=== PATIENT | female | born 1995 | race Caucasian/White ===

== ENCOUNTER 2017-11-28 | Emergency (ER) | payer BC, MEDICAID ==
--- NOTE | 2017-11-28 01:20 | ER Document Report ---
ED Medical Screen (RME) - General Chief Complaint: Vaginal Bleeding Stated Complaint: ABDOMINAL CRAMPING/DIZZY Time Seen by Provider: 11/28/17 01:18 Mode of Arrival: Ambulatory Information source: Patient Notes: 22-year-old female presents to ED for complaint of left flank pain since a.m. She states that it is been off and on throughout the day but got worse this afternoon. She states he called the health department and they told her to drink more water if she was cramping. She states she is 9 weeks 6 days 1 para 0. She denies any vaginal pain or bleeding. She denies any vaginal burning or discharge. Temperature 98.5 pulse is 91 and pulse ox is 100% in the Pit. I have greeted and performed a rapid initial assessment of this patient. A comprehensive ED assessment and evaluation of the patient, analysis of test results and completion of medical decision making process will be conducted by an additional ED providers. TRAVEL OUTSIDE OF THE [place] IN LAST 30 DAYS: No Physical Exam - Vital signs Vitals: Temp Pulse Resp BP Pulse Ox 99.3 F 115 H 20 133/76 H 99 11/28/17 00:04 11/28/17 00:04 11/28/17 00:04 11/28/17 00:04 11/28/17 00:04 Course - Vital Signs Vital signs: Temp Pulse Resp BP Pulse Ox 99.3 F 115 H 20 133/76 H 99 11/28/17 00:04 11/28/17 00:04 11/28/17 00:04 11/28/17 00:04 11/28/17 00:04
[2017-11-28] MEDS ORDERED: NORMAL SALINE 1000 ML 1,000 ML IV ONE (01:39)
--- NOTE | 2017-11-28 01:40 | ER Document Report ---
ED GI/ - General Chief Complaint: Vaginal Bleeding Stated Complaint: ABDOMINAL CRAMPING/DIZZY Time Seen by Provider: 11/28/17 01:18 Mode of Arrival: Ambulatory Notes: Patient is a 22-year-old female, at 9 weeks 6 days by first trimester ultrasound, the comes emergency department for chief complaint of mid to lower abdominal pain that radiates around to her left side and flank. Symptoms started earlier today, come and go but at times are very sharp. She states when she stands up occasionally she will feel lightheaded although she has not passed out, she does not have dizziness. She denies chest pain, shortness of breath, fever, dysuria, vaginal discharge or bleeding. She denies injury. She denies any surgeries or daily medications other than vitamins. TRAVEL OUTSIDE OF THE [place] IN LAST 30 DAYS: No - Related Data Allergies/Adverse Reactions: No Known Allergies Allergy (Unverified 11/28/17 01:19) Past Medical History - General Information source: Patient - Social History Smoking Status: Never Smoker Frequency of alcohol use: None Drug Abuse: None Lives with: Family Family History: Reviewed & Not Pertinent Patient has suicidal ideation: No Patient has homicidal ideation: No - Medical History Medical History: Negative Renal/ Medical History: Denies: Hx Peritoneal Dialysis Surgical Hx: Negative - Immunizations Immunizations up to date: Yes Hx Diphtheria, Pertussis, Tetanus Vaccination: Yes Review of Systems - Review of Systems Constitutional: No symptoms reported EENT: No symptoms reported Cardiovascular: No symptoms reported Respiratory: No symptoms reported Gastrointestinal: See HPI Genitourinary: See HPI Female Genitourinary: See HPI Musculoskeletal: No symptoms reported Skin: No symptoms reported Hematologic/Lymphatic: No symptoms reported Neurological/Psychological: No symptoms reported Physical Exam - Vital signs Vitals: Temp Pulse Resp BP Pulse Ox 99.3 F 115 H 20 133/76 H 99 11/28/17 00:04 11/28/17 00:04 11/28/17 00:04 11/28/17 00:04 11/28/17 00:04 - General General appearance: Appears well In distress: None - HEENT Head: Normocephalic, Atraumatic Eyes: Normal Conjunctiva: Normal Pupils: PERRL Mouth/Lips: Normal Mucous membranes: Normal Pharynx: Normal Neck: Normal - Respiratory Respiratory status: No respiratory distress Breath sounds: Normal. No: Decreased air movement - Cardiovascular Rhythm: Regular. No: Tachycardia Heart sounds: Normal auscultation, S1 appreciated, S2 appreciated - Abdominal Inspection: Normal Tenderness: Tender - There is mild tenderness in the pelvic area on both sides, remaining abdomen is benign - Back Back: Normal, Nontender. No: Tender - Extremities General upper extremity: Normal inspection, Nontender, Normal strength, Normal temperature General lower extremity: Normal inspection, Nontender, Normal strength, Normal temperature - Neurological Neuro grossly intact: Yes Cognition: Normal Orientation: AAOx4 Leigh Coma Scale Eye Opening: Spontaneous Leigh Coma Scale Verbal: Oriented Leigh Coma Scale Motor: Obeys Commands Teresa Coma Scale Total: 15 Speech: Normal Motor strength normal: LUE, RUE, LLE, RLE Sensory: Normal - Skin Skin Temperature: Warm Skin Moisture: Dry Skin Color: Normal Course - Re-evaluation Re-evalutation: Patient is well-appearing on exam, she does have some pelvic pain on both sides , no CVA tenderness, no upper abdominal tenderness. Unremarkable vital signs. She is in no distress. Vital signs are unremarkable except for mild tachycardia. Giving IV fluids. CBC does show leukocytosis. She did not have a fever. No bandemia. Tachycardia resolved with IV fluids. Chemistry unremarkable, urine nonspecific , hCG is elevated. Ultrasound is unremarkable. Pelvic examination shows a large amount of discharge, erythematous cervix, 2+ white blood cells and white, unremarkable workup otherwise. Because of pelvic pain, leukocytosis, white blood cells, discharge, patient was treated with Rocephin and azithromycin for coverage of potential pelvic infection. Patient has [facility] follow-up. Patient states she is ready to leave. Remains well- appearing on reexamination. Discussed follow-up and return precautions. Patient states understanding and agreement. - Vital Signs Vital signs: Temp Pulse Resp BP Pulse Ox 98.5 F 78 18 105/64 100 11/28/17 06:17 11/28/17 06:17 11/28/17 06:17 11/28/17 06:17 11/28/17 06:17 - Laboratory Result Diagrams: 11/28/17 01:56 11/28/17 01:56 Laboratory results interpreted by me: 11/28/17 11/28/17 11/28/17 01:23 01:56 01:56 WBC 15.9 H Plt Count 453 H Absolute Neutrophils 11.7 H Chloride 110 H Creatinine 0.47 L Beta HCG, Quant 595632.00 H Urine Urobilinogen 2.0 H Ur Leukocyte Esterase MODERATE H Discharge - Discharge Clinical Impression: Pelvic pain Condition: Stable Disposition: HOME, SELF-CARE Additional Instructions: Your ultrasound shows a living in the uterus at 10 weeks and 4 days with no abnormalities noted. Your examination shows a pelvic infection, you have been treated for this tonight. Follow-up with your [facility] appointment as planned. Return if you worsen including vomiting, returned or worsening abdominal pain, fever, vaginal bleeding, or any other concerning or worsening symptoms. Forms: Return to Work Referrals: FILIPE LOVELACE MD [Primary Care Provider] - Follow up as needed
[2017-11-28 01:42] LABS: AMORPHOUS SEDIMENT,URINE TRACE /HPF; APPEARANCE,URINE SLIGHTLY-CLOUDY; BILIRUBIN,URINE NEGATIVE (NEGATIVE); COLOR,URINE YELLOW; GLUCOSE, URINE NEGATIVE (NEGATIVE); KETONES,URINE NEGATIVE (NEGATIVE); LEUKOCYTE ESTERASE,URINE MODERATE (NEGATIVE); NITRITE,URINE NEGATIVE (NEGATIVE); PROTEIN,URINE NEGATIVE (NEGATIVE); URINE SPECIFIC GRAVITY 1.023
[2017-11-28 02:02] LABS: ABSOLUTE BASOPHILS # (AUTO) 0.1 10^3/uL (0.0-0.2); ABSOLUTE EOSINOPHILS # (AUTO) 0.1 10^3/uL (0.0-0.6); ABSOLUTE LYMPHOCYTES (AUTO) 3.1 10^3/uL (0.5-4.7); ABSOLUTE MONOCYTES (AUTO) 0.9 10^3/uL (0.1-1.4); ABSOLUTE NEUT (AUTO) 11.7 10^3/uL (1.7-8.2); BASOPHILS % (AUTO) 0.5 % (0-2); EOSINOPHILS % (AUTO) 0.3 % (0-6); HEMATOCRIT 38.7 % (36.0-47.0); LYMPHOCYTES % (AUTO) 19.3 % (13-45); MEAN CORPUSCULAR HEMOGLOBIN 30.3 pg (27.0-33.4); MEAN CORPUSCULAR HGB CONC 33.7 g/dL (32.0-36.0); MEAN CORPUSCULAR VOLUME 90 fl (80-97); PLATELET COUNT 453 10^3/uL (150-450); RED BLOOD COUNT 4.31 10^6/uL (3.72-5.28); RED CELL DISTRIBUTION WIDTH 12.3 % (11.5-14.0); SEGMENTED NEUTROPHILS % (AUTO) 73.9 % (42-78); TOTAL CELLS COUNTED % (AUTO) 100 %; WHITE BLOOD COUNT 15.9 10^3/uL (4.0-10.5)
[2017-11-28 02:20] LABS: ALANINE AMINOTRANSFERASE 19 U/L (9-52); ALBUMIN 4.1 g/dL (3.5-5.0); ALKALINE PHOSPHATASE 64 U/L (38-126); ANION GAP 10 (5-19); ASPARTATE AMINO TRANSFERASE 20 U/L (14-36); BILIRUBIN,DIRECT 0.2 mg/dL (0.0-0.4); BILIRUBIN,TOTAL 0.2 mg/dL (0.2-1.3); BLOOD UREA NITROGEN 8 mg/dL (7-20); CALCIUM 9.9 mg/dL (8.4-10.2); CARBON DIOXIDE 22 mmol/L (22-30); CHLORIDE 110 mmol/L (98-107); GLUCOSE 77 mg/dL (75-110); POTASSIUM 3.9 mmol/L (3.6-5.0); SODIUM 141.5 mmol/L (137-145); TOTAL PROTEIN 6.8 g/dL (6.3-8.2)
[2017-11-28 02:54] LABS: RBCS (WET MOUNT) RARE RBCS SEEN; T.VAGINALIS (WET MOUNT) NO TRICHOMONAS SEEN; WBCS (WET MOUNT) 2+ WBCS SEEN; YEAST (WET MOUNT) NO YEAST SEEN
[2017-11-28 04:12] LABS: CHLAM PCR NOT DETECTED (NOT DETECT); GON PCR NOT DETECTED (NOT DETECT)
--- NOTE | 2017-11-28 05:28 | RADIOLOGY REPORT (SQ) ---
EXAM DESCRIPTION: U/S OB TRANSVAG W/DOPPLER CLINICAL HISTORY: 22 years, Female, pelvic pain (worse on left), positive HCG COMPARISON: None. TECHNIQUE: Transvaginal LIMITATIONS: None. FINDINGS: Living intrauterine fetus measures 10w4d with VIOLA of 06/22/18 based on crown-rump length of 3.6 cm. Cardiac activity is 157 bpm. 3.1 cm right ovary, 3.8 cm left ovary, and likely 1.6 cm left corpus luteum appear otherwise unremarkable. Cervical length is 2.5 cm. No free fluid. IMPRESSION: Living intrauterine fetus measures 10w4d.
[2017-11-28] MEDS ORDERED: CEFTRIAXONE INJ 250 MG VIAL IV ONE (05:39)
[2017-11-28] MEDS ORDERED: AZITHROMYCIN 250 MG TABLET PO ONE (05:39)
[2017-11-28 06:35] VITALS: BP 105/64
== END 2017-11-28 06:37 | disposition home or self-care (01) ==
LOC: ER
DX: O26.891 Other specified pregnancy related conditions, first trimester (principal); R10.2 Pelvic and perineal pain; R42 Dizziness and giddiness; R00.0 Tachycardia, unspecified; Z3A.09 9 weeks gestation of pregnancy
CPT/HCPCS: 99284; 96361; 96365; 36415; 87210; 84702; 85025; 80053; 81001; 87491; 87591; 76817; 93976; Q0144; J7030; J0696

== ENCOUNTER 2018-06-08 17:41 | Outpatient (CLI) | payer MEDICAID ==
[~2018-06-08 17:41] MED LIST: LIDOCAINE 2% VISCOUS SOLN 20 ML UDCUP PO ONE; MAG HYDROX/AL HYDROX/SIMETH SUSP 30 ML UDCUP PO ONE; METOCLOPRAMIDE HCL ORAL SOLN 10 MG/10 ML UDCUP PO ONE; OXYCODONE-ACETAMINOPHEN 5-325 MG TABLET PO ONE
[2018-06-08] MEDS ORDERED: HYDROXYZINE PAMOATE 50 MG CAPSULE PO ONE (18:37)
[2018-06-08 18:52] LABS: ABSOLUTE BASOPHILS # (AUTO) 0.1 10^3/uL (0.0-0.2); ABSOLUTE EOSINOPHILS # (AUTO) 0.1 10^3/uL (0.0-0.6); ABSOLUTE LYMPHOCYTES (AUTO) 1.9 10^3/uL (0.5-4.7); ABSOLUTE NEUT (AUTO) 11.4 10^3/uL (1.7-8.2); BASOPHILS % (AUTO) 0.6 % (0-2); EOSINOPHILS % (AUTO) 0.8 % (0-6); HEMATOCRIT 33.2 % (36.0-47.0); HEMOGLOBIN 11.3 g/dL (12.0-15.5); LYMPHOCYTES % (AUTO) 13.1 % (13-45); MEAN CORPUSCULAR HEMOGLOBIN 29.3 pg (27.0-33.4); MEAN CORPUSCULAR VOLUME 86 fl (80-97); MONOCYTES % (AUTO) 6.9 % (3-13); PLATELET COUNT 363 10^3/uL (150-450); RED BLOOD COUNT 3.86 10^6/uL (3.72-5.28); RED CELL DISTRIBUTION WIDTH 13.4 % (11.5-14.0); SEGMENTED NEUTROPHILS % (AUTO) 78.6 % (42-78); TOTAL CELLS COUNTED % (AUTO) 100 %; WHITE BLOOD COUNT 14.5 10^3/uL (4.0-10.5)
[2018-06-08] MEDS ORDERED: HYDROXYZINE PAMOATE 50 MG CAPSULE ONE (19:21)
[2018-06-08 19:22] LABS: ALANINE AMINOTRANSFERASE 17 U/L (9-52); ALBUMIN 3.5 g/dL (3.5-5.0); ALKALINE PHOSPHATASE 162 U/L (38-126); AMYLASE 56 U/L (30-110); ANION GAP 13 (5-19); ASPARTATE AMINO TRANSFERASE 18 U/L (14-36); BILIRUBIN,DIRECT 0.3 mg/dL (0.0-0.4); BILIRUBIN,TOTAL 0.5 mg/dL (0.2-1.3); BLOOD UREA NITROGEN 8 mg/dL (7-20); CALCIUM 9.7 mg/dL (8.4-10.2); CARBON DIOXIDE 18 mmol/L (22-30); CHLORIDE 107 mmol/L (98-107); GLUCOSE 88 mg/dL (75-110); LIPASE 84.5 U/L (23-300); POTASSIUM 3.8 mmol/L (3.6-5.0); SODIUM 137.7 mmol/L (137-145); TOTAL PROTEIN 6.5 g/dL (6.3-8.2)
[2018-06-08] MEDS ORDERED: RINGERS SOLUTION,LACTATED 1,000 ML IV ONE (19:50)
[2018-06-08] MEDS ORDERED: RINGERS SOLUTION,LACTATED 1,000 ML IV PRN (19:50)
[2018-06-08 20:22] LABS: APPEARANCE,URINE TURBID; BILIRUBIN,URINE NEGATIVE (NEGATIVE); GLUCOSE, URINE NEGATIVE (NEGATIVE); KETONES,URINE NEGATIVE (NEGATIVE); LEUKOCYTE ESTERASE,URINE TRACE (NEGATIVE); NITRITE,URINE NEGATIVE (NEGATIVE); PROTEIN,URINE NEGATIVE (NEGATIVE); URINE SPECIFIC GRAVITY 1.021; UROBILINOGEN,URINE NEGATIVE mg/dL (<2.0)
[2018-06-08 20:23] LABS: COLOR,URINE DARK YELLOW
[2018-06-08 20:38] LABS: URINE AMPHETAMINES SCREEN NEGATIVE; URINE BARBITURATES SCREEN NEGATIVE; URINE BENZODIAZEPINES SCREEN NEGATIVE; URINE COCAINE SCREEN NEGATIVE; URINE MARIJUANA (THC) SCREEN NEGATIVE; URINE METHADONE SCREEN NEGATIVE; URINE PHENCYCLIDINE SCREEN NEGATIVE
[2018-06-08] MEDS ORDERED: MAG HYDROX/AL HYDROX/SIMETH SUSP 30 ML UDCUP ONE ×2 (21:42→23:37)
[2018-06-08] MEDS ORDERED: MAG HYDROX/AL HYDROX/SIMETH SUSP 30 ML UDCUP PO ONE (21:44)
[2018-06-08] MEDS ORDERED: OXYCODONE-ACETAMINOPHEN 5-325 MG TABLET ONE (23:25)
[2018-06-08] MEDS ORDERED: METOCLOPRAMIDE HCL ORAL SOLN 10 MG/10 ML UDCUP ONE (23:34)
[2018-06-08] MEDS ORDERED: LIDOCAINE 2% VISCOUS SOLN 20 ML UDCUP ONE (23:34)
[2018-06-09] MEDS ORDERED: PROMETHAZINE HCL INJ 25 MG/1 ML VIAL ONE (00:47)
[2018-06-09] MEDS ORDERED: MORPHINE SULFATE 10 MG/ML INJ ONE (00:48)
[2018-06-09] MEDS ORDERED: PROMETHAZINE HCL INJ 25 MG/1 ML VIAL IV ONE (00:59)
[2018-06-09] MEDS ORDERED: MORPHINE SULFATE 10 MG/ML INJ IV ONE (00:59)
--- NOTE | 2018-06-09 02:01 | RADIOLOGY REPORT (SQ) ---
CLINICAL DATA: 22-year-old female with right upper quadrant pain and positive at 37 weeks. TECHNICAL DATA: Transabdominal ultrasound imaging was performed through the gravid uterus. COMPARISON: Prior OB ultrasound performed on 11/28/2017.. FINDINGS: ANATOMIC EVALUATION FETUS single POSITION Vertex HEART RATE 135 bpm AMNIOTIC FLUID 12.2 cm PLACENTA LOCATION fundal PREVIA none MEASUREMENTS BPD: 9.39 cm corresponding to 38 weeks, two days. HC: 33.35 cm corresponding to 38 weeks, one days. AC: 34.05 cm corresponding to 38 weeks, zero days. FL: 7.45 cm corresponding to 38 weeks, one days. CER: 3.4 cm FL/AC: 21.9 FL/BPD: 79.3 HC/AC: 0.98 CI: 82.3 EFW: 3380 grams (56th percentile) CLINICAL DATES LMP 09/13/2017 [place] 38 weeks two days EDC 06/20/2018 ESTIMATED DATES BY ULTRASOUND A[address] [place] 38 weeks one day EDC 06/21/2018 IMPRESSION: 1. Single living intrauterine with an estimated ultrasound age of 38 weeks, one days with an estimated due date of 06/21/2018. 2. The placenta is fundal in location without evidence of placenta previa. 3. The amniotic fluid index is within normal limits. 4. The anatomic survey not performed at this time. 5. The anatomic ratios are within normal limits..
--- NOTE | 2018-06-09 02:05 | RADIOLOGY REPORT (SQ) ---
EXAM DESCRIPTION: US ABDOMEN LIMITED COMPLETED DATE/TME: 06/08/2018 23:21 CLINICAL HISTORY: RUQ pain COMPARISON: None. TECHNIQUE: Real-time sonographic images of the right upper abdomen were obtained using a curved multihertz transducer. FINDINGS: Pancreas: The pancreas is not well-visualized due to overlying structures. Vascular: The visualized portions of the aorta and IVC are unremarkable. Liver: The liver has normal contour and echogenicity. Hepatopedal flow in the portal vein. Findings confirmed with color and spectral Doppler imaging. The common bile duct measures 0.2 cm. Gallbladder: The gallbladder has a normal appearance. No gallstones identified. No wall thickening or pericholecystic fluid. Right Kidney: The right kidney measures 10.2 cm in length. Mild prominence of the right renal collecting system is within normal limits for the gestational age of the patient's . No shadowing echogenic foci may represent pelvic fat however nonobstructing calculus not excluded. IMPRESSION: 1. No gallstones identified. 2. Pelvicalyceal dilatation of the right kidney is within normal limits for the gestational age of the patient's . 3. Echogenic nonshadowing foci in the renal pelvis may be related to normal pelvic fat however punctate nonobstructing calculi could produce a similar appearance.
--- NOTE | 2018-06-09 02:39 | Non Stress Test Report ---
Non Stress Test Datetime Report Generated by CPN: 06/09/2018 02:38 DEMOGRAPHIC EGA NST: 37.2 INDICATION Indication for Study: Ordered by Provider Indication for Study (NST) Other: LC VITAL SIGNS Temperature - NST: 97.4 Pulse - NST: 84 RESP - NST: 16 NBPSYS NST: 95 NBPDIA NST: 50 URINE RESULTS Urine Protein, NST: Negative Urine Ketones - NST: Negative Urine Glucose - NST: Negative Urine Blood - NST: Negative MONITORING Monitor Explained: Monitor Explained; Test Explained; Patient Verbalized Understanding Time on Monitor: 06/08/2018 17:56 Time off Monitor: 06/09/2018 01:46 NST Duration: 470 NST INTERVENTIONS NST Interventions: PO Hydration; IV Fluids Physician Notified NST: Dr. David BABY A: [id number] BABY A Movement : Present Contraction Frequency : None noted FHR Baseline : 125 Accelerations : 15X15 Decelerations : None Variability : Moderate 6-25bpm NST Review: Meets Criteria for Reactive NST NST Review and Verified By : Sima Devi, RN NST Results: Reactive NST REPORT Report Trigger: Send Report
== END 2018-06-09 01:57 | disposition home or self-care (01) ==
LOC: LC 17:41
PROVIDERS: ATTEND Obstetrics & Gynecology
PROC: 4A1HXCZ Monitoring of Products of Conception, Cardiac Rate, External Approach (ICD-10-PCS; principal; 2018-06-08)
DX: O26.893 Other specified pregnancy related conditions, third trimester (principal); R10.11 Right upper quadrant pain; Z3A.37 37 weeks gestation of pregnancy
CPT/HCPCS: 59025; 36415; 82150; 83690; 85025; 81005; 80053; 80307; 76705; 76815; J3490 ×4; J2270; J2550

== ENCOUNTER 2018-06-09 17:24 | Outpatient (CLI) | payer MEDICAID ==
[2018-06-09 18:00] LABS: APPEARANCE,URINE SLIGHTLY-CLOUDY; BILIRUBIN,URINE NEGATIVE (NEGATIVE); GLUCOSE, URINE NEGATIVE (NEGATIVE); KETONES,URINE 20 mg/dL (NEGATIVE); LEUKOCYTE ESTERASE,URINE TRACE (NEGATIVE); NITRITE,URINE NEGATIVE (NEGATIVE); PROTEIN,URINE NEGATIVE (NEGATIVE); URINE SPECIFIC GRAVITY 1.004; UROBILINOGEN,URINE NEGATIVE mg/dL (<2.0)
[2018-06-09 18:03] LABS: COLOR,URINE YELLOW
[2018-06-09 18:50] LABS: ABSOLUTE BASOPHILS # (AUTO) 0.1 10^3/uL (0.0-0.2); ABSOLUTE LYMPHOCYTES (AUTO) 1.6 10^3/uL (0.5-4.7); ABSOLUTE NEUT (AUTO) 17.1 10^3/uL (1.7-8.2); BASOPHILS % (AUTO) 0.4 % (0-2); HEMATOCRIT 31.9 % (36.0-47.0); HEMOGLOBIN 10.9 g/dL (12.0-15.5); LYMPHOCYTES % (AUTO) 8.1 % (13-45); MEAN CORPUSCULAR HEMOGLOBIN 29.1 pg (27.0-33.4); MEAN CORPUSCULAR HGB CONC 34.3 g/dL (32.0-36.0); MEAN CORPUSCULAR VOLUME 85 fl (80-97); PLATELET COUNT 352 10^3/uL (150-450); RED BLOOD COUNT 3.75 10^6/uL (3.72-5.28); RED CELL DISTRIBUTION WIDTH 13.5 % (11.5-14.0); SEGMENTED NEUTROPHILS % (AUTO) 86.5 % (42-78); TOTAL CELLS COUNTED % (AUTO) 100 %; WHITE BLOOD COUNT 19.7 10^3/uL (4.0-10.5)
[2018-06-09 18:59] LABS: URINE AMPHETAMINES SCREEN NEGATIVE; URINE BARBITURATES SCREEN NEGATIVE; URINE BENZODIAZEPINES SCREEN NEGATIVE; URINE COCAINE SCREEN NEGATIVE; URINE MARIJUANA (THC) SCREEN NEGATIVE; URINE METHADONE SCREEN NEGATIVE; URINE PHENCYCLIDINE SCREEN NEGATIVE
[2018-06-09] MEDS ORDERED: MORPHINE SULFATE 10 MG/ML INJ ONE (19:27)
--- NOTE | 2018-06-09 20:16 | RADIOLOGY REPORT (SQ) ---
EXAM DESCRIPTION: U/S ABDOMEN LIMITED W/O DOP COMPLETED DATE/TIME: 06/09/2018 8:08 pm REASON FOR STUDY: 37+3 EGA w/RUQ pain, please eval appy COMPARISON: None. TECHNIQUE: Static and real time shook scale imaging performed of the right lower quadrant with additi onal compression maneuvers. LIMITATIONS: None. FINDINGS: APPENDIX: Not visualized. BOWEL: Active peristalsis with fluid in the bowel. COMPRESSION MANEUVERS: No rebound pain with compression. OTHER: No other significant finding. IMPRESSION: APPENDIX NOT IDENTIFIED. ACTIVE PERISTALSIS. TECHNICAL DOCUMENTATION: JOB ID: [id number] [employer]- All Rights Reserved Reading location - IP/workstation name: [email or web address]
[2018-06-09] MEDS ORDERED: MORPHINE SULFATE 10 MG/ML INJ IM ONE (20:20)
[2018-06-09 21:02] LABS: ALANINE AMINOTRANSFERASE 16 U/L (9-52); ALBUMIN 3.3 g/dL (3.5-5.0); ALKALINE PHOSPHATASE 174 U/L (38-126); ANION GAP 11 (5-19); ASPARTATE AMINO TRANSFERASE 18 U/L (14-36); BILIRUBIN,DIRECT 0.4 mg/dL (0.0-0.4); BILIRUBIN,TOTAL 0.7 mg/dL (0.2-1.3); BLOOD UREA NITROGEN 3 mg/dL (7-20); CALCIUM 9.4 mg/dL (8.4-10.2); CARBON DIOXIDE 18 mmol/L (22-30); CHLORIDE 106 mmol/L (98-107); GLUCOSE 86 mg/dL (75-110); SODIUM 134.9 mmol/L (137-145); TOTAL PROTEIN 6.2 g/dL (6.3-8.2); URIC ACID 6.6 mg/dL (2.5-6.2)
[2018-06-09] MEDS ORDERED: OXYCODONE-ACETAMINOPHEN 5-325 MG TABLET ONE (21:55)
[2018-06-09] MEDS ORDERED: OXYCODONE-ACETAMINOPHEN 5-325 MG TABLET PO ONE (22:05)
--- NOTE | 2018-06-09 22:14 | Non Stress Test Report ---
Non Stress Test Datetime Report Generated by CPN: 06/09/2018 22:14 DEMOGRAPHIC EGA NST: 37.3 INDICATION Indication for Study: Ordered by Provider Indication for Study (NST) Other: LC URINE RESULTS Urine Protein, NST: Negative Urine Ketones - NST: Positive Urine Glucose - NST: Negative Urine Blood - NST: Positive MONITORING Monitor Explained: Monitor Explained; Test Explained; Patient Verbalized Understanding Time on Monitor: 06/09/2018 17:35 Time off Monitor: 06/09/2018 21:46 NST Duration: 251 NST INTERVENTIONS NST Interventions: PO Hydration Physician Notified NST: Cox-Abel BABY A: [id number] BABY A Movement : Present Contraction Frequency : irregular FHR Baseline : 120 Accelerations : 15X15 Decelerations : None Variability : Moderate 6-25bpm NST Review: Meets Criteria for Reactive NST NST Review and Verified By : Sima Devi RN NST Results: Reactive NST REPORT Report Trigger: Send Report
--- NOTE | 2018-06-09 22:14 | L&D Progress Notes ---
PROGRESS NOTES Datetime Report Generated by RAJ: 06/09/2018 22:14 PROGRESS NOTE Impression Other: RUQ pain, back pain, N/V Comment: 24yo at 37+3 weeks seen in triage with c/o continued RUQ pain since 1600 yesterday afternoon. Pt was seen in triage last night w/grossly normal labs and normal RUQ US. She was d/c home w/precautions. Pt represented this afternoon with continued pain. She states she is able to keep down fluids but has not tried eating. Nothing makes it better. Pain starts on her upper left abdomen, radiates to back, then moves down her buttock and leg. US of appendix was ordered, unable to be visualized. Increase in WBC from 14 to 19, left shift. CMP WNL. Min leuk esterase in UA. Vitals signs WNL, afebrile. No rebound tenderness noted, no tenderness with deep palpation. Pt was noted to be eating in room. No vomiting while in triage. Morphine given IM with improvement of pain. Low suspicion for atypical preE, gallbladder disease, unable to visualize appendicitis however low on Ddx at this time, not in labor. Pt d/c home with a percocet and instructions to return for worsening of pain, ROM, reg painful ctx, LOF. Instructed to make f/u appt in clinic this week. MEMBRANES Membranes: Intact SIGNATURE SIGNATURE: [id number];[id number] SIGNATURE: [id number] Signature: with User ID: [email or web address]
== END 2018-06-09 22:00 | disposition home or self-care (01) ==
LOC: LC 17:24
PROVIDERS: ATTEND Obstetrics & Gynecology
PROC: 4A1HXCZ Monitoring of Products of Conception, Cardiac Rate, External Approach (ICD-10-PCS; principal; 2018-06-09)
DX: O26.893 Other specified pregnancy related conditions, third trimester (principal); R10.9 Unspecified abdominal pain; Z3A.37 37 weeks gestation of pregnancy
CPT/HCPCS: 59025; 36415; 83615; 84550; 85025; 81005; 80053; 80307; 76705; J2270

== ENCOUNTER 2018-06-23 09:52 | Inpatient (IN) | payer MEDICAID ==
[2018-06-23 10:54] LABS: APPEARANCE,URINE TURBID; BILIRUBIN,URINE NEGATIVE (NEGATIVE); COLOR,URINE YELLOW; GLUCOSE, URINE NEGATIVE (NEGATIVE); KETONES,URINE NEGATIVE (NEGATIVE); LEUKOCYTE ESTERASE,URINE LARGE (NEGATIVE); NITRITE,URINE NEGATIVE (NEGATIVE); PROTEIN,URINE 30 mg/dL (NEGATIVE); URINE SPECIFIC GRAVITY 1.016; UROBILINOGEN,URINE NEGATIVE mg/dL (<2.0)
[2018-06-23 11:15] LABS: URINE AMPHETAMINES SCREEN NEGATIVE; URINE BARBITURATES SCREEN NEGATIVE; URINE BENZODIAZEPINES SCREEN NEGATIVE; URINE COCAINE SCREEN NEGATIVE; URINE MARIJUANA (THC) SCREEN NEGATIVE; URINE METHADONE SCREEN NEGATIVE; URINE PHENCYCLIDINE SCREEN NEGATIVE
[2018-06-23 11:53] LABS: ABSOLUTE BASOPHILS # (AUTO) 0.1 10^3/uL (0.0-0.2); ABSOLUTE EOSINOPHILS # (AUTO) 0.1 10^3/uL (0.0-0.6); ABSOLUTE LYMPHOCYTES (AUTO) 2.3 10^3/uL (0.5-4.7); ABSOLUTE MONOCYTES (AUTO) 1.3 10^3/uL (0.1-1.4); ABSOLUTE NEUT (AUTO) 14.9 10^3/uL (1.7-8.2); BASOPHILS % (AUTO) 0.4 % (0-2); EOSINOPHILS % (AUTO) 0.3 % (0-6); HEMATOCRIT 32.5 % (36.0-47.0); HEMOGLOBIN 10.9 g/dL (12.0-15.5); LYMPHOCYTES % (AUTO) 12.4 % (13-45); MEAN CORPUSCULAR HGB CONC 33.5 g/dL (32.0-36.0); MEAN CORPUSCULAR VOLUME 83 fl (80-97); MONOCYTES % (AUTO) 6.9 % (3-13); PLATELET COUNT 406 10^3/uL (150-450); RED CELL DISTRIBUTION WIDTH 13.8 % (11.5-14.0); TOTAL CELLS COUNTED % (AUTO) 100 %; WHITE BLOOD COUNT 18.6 10^3/uL (4.0-10.5)
[2018-06-23] MEDS ORDERED: EPHEDRINE SULFATE INJ 50 MG/1 ML AMPULE ONE (12:13)
[2018-06-23] MEDS ORDERED: FENTANYL/BUPIVACAINE/NS/PF 300 MCG/150 ML RTUINJ EPI ONE (12:13)
[2018-06-23] MEDS ORDERED: BUPIVACAINE HCL 0.5 % INJ/PF 30 ML SDV ONE ×2 (12:14→21:04)
--- NOTE | 2018-06-23 13:01 | Admission Physical ---
Datetime Report Generated by CPN: 06/23/2018 13:01 CURRENT ADMISSION Chief Complaint: Uterine Contractions; Suspected Ruptured Membranes Indication for Induction: Post Dates Admit Impression : Term, Intrauterine ; Active Labor; Ruptured Membranes Admit Plan: Admit to Unit; Initiate Labor Protocol; Initiate Labor Augmentation Protocol ALLERGIES Medication Allergies: No Medication Allergies: No Known Allergies (06/08/2018) Latex: No Latex Allergies Food Allergies: NONE Environmental Allergies: NONE OBSTETRICAL HISTORY EDC: 06/27/2018 00:00 : 2 Para: 0 Term: 0 : 0 SAB: 1 IAB: 0 Ectopic: 0 Livin Cesareans: 0 VBACs: 0 Multiple Births: 0 Gestational Diabetes: No Rh Sensitization: No Incompetent Cervix: No STEVE: No Infertility: No ART Treatment: No Uterine Anomaly: No IUGR: No Hx Previous C/S: No Macrosomia: No Hx Loss/Stillborn: No PIH: No Hx : No Placenta Previa/Abruption: No Depression/PP Depression: No PTL/PROM: No Post Hemorrhage: No Current Procedures: Ultrasound; NST Obstetrical History Comments: G1 - SAB @ 6 weeks in 2015 G2 - Current , per chart placent bianchi vs. placenta cyst SEE RECORDS Alcohol: No Marijuana : No Cocaine: No Other Illicit Drugs: No Cigarettes: Former Smoker. [id number] Cigarette Comments: Pt stopped smoking after learning she was . 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: No Heart Disease: No Hosp/Surgery: No Autoimmune Disorder: No Anesthetic Complications: No Kidney Disease: No Abnormal Pap Smear: No Neuro/Epilepsy: No Psychiatric Disorders: No Other Medical Diseases: No Hepatitis/Liver Disease: No Varicosities/Phlebitis: No Trauma/Violence : No Thyroid Dysfunction: No Medical History Comments: [place] teeth removed INFECTIOUS HISTORY Gonorrhea: No Chlamydia: No Tuberculosis: No Syphilis: No Hepatitis: No HIV/AIDS Exposure: No HPV: No Infectious History Comments: BV 11/2017; possible PID treated in ED on 11/29/2017 PHYSICAL EXAM General: Normal HEENT: Normal Neurologic: Normal Thyroid: Normal Heart: Normal Lungs: Normal Breast: Normal Back: Normal Abdomen: Normal Genitourinary Exam: Normal Extremities: Normal DTRs: Normal Pelvic Type: Adequate Vital Signs: Reviewed; Within Normal Limits VAGINAL EXAM Dilatation: 5 Effacement: 90 Station: -1 MEMBRANES Pooling: Positive Membranes: Intact Amniotic Fluid Color: Clear FETUS A EGA: 37.3 Monitoring: External US FHR- Baseline: 130 Variability: Moderate 6-25bpm Accelerations: 15X15 Decelerations: None FHR Category: Category I Estimated Weight (gm): 3500 Presentation: Vertex PLANS FOR LABOR AND DELIVERY Labor and Delivery: None Pain Management: Epidural Feeding Preference: Breast Benefit of Breast Feed Discussed: Yes Circumcision: Yes INFORMED CONSENT Signature: with User ID: [email or web address]
[2018-06-23] MEDS ORDERED: OXYTOCIN/NORMAL SALINE 20 UNIT/1,000 ML RTUINJ IV PRN ×2 (15:05→21:01)
[2018-06-23] MEDS ORDERED: OXYTOCIN/NORMAL SALINE 20 UNIT/1,000 ML RTUINJ ONE ×2 (15:19→19:29)
[2018-06-23] MEDS ORDERED: MISOPROSTOL 0.2 MG TABLET ONE (19:29)
[2018-06-23] MEDS ORDERED: LIDOCAINE 1% INJ-PF (10 MG/ML) 30 ML SDV ONE (19:29)
[2018-06-23] MEDS ORDERED: OXYTOCIN 10 UNIT/ML VIAL ONE ×2 (19:29→21:15)
[2018-06-23] MEDS ORDERED: CITRIC ACID/SODIUM CITRATE ORAL SOLN 15 ML UDCUP ONE (20:58)
[2018-06-23] MEDS ORDERED: CEFAZOLIN 2 GM/D5W RTU 2 GM/50 ML RTUPB IV ONE (20:58)
[2018-06-23] MEDS ORDERED: PROMETHAZINE HCL INJ 25 MG/1 ML VIAL IV PRN (21:01)
[2018-06-23] MEDS ORDERED: RINGERS SOLUTION,LACTATED 1,000 ML IV PRN (21:01)
[2018-06-23] MEDS ORDERED: ACETAMINOPHEN 325 MG TABLET PO PRN (21:01)
[2018-06-23] MEDS ORDERED: SIMETHICONE 80 MG TAB.CHEW PO PRN (21:01)
[2018-06-23] MEDS ORDERED: MEASLES,MUMPS&RUBELLA VACC/PF 0.5 ML VIAL SUBCUT PRN (21:01)
[2018-06-23] MEDS ORDERED: OXYCODONE-ACETAMINOPHEN 5-325 MG TABLET PO PRN (21:01)
[2018-06-23] MEDS ORDERED: DIPH/PERTUSS(ACELL)/TETANUS VAC/PF 0.5 ML SYR (>=10YO) IM PRN (21:01)
[2018-06-23] MEDS ORDERED: ONDANSETRON HCL INJ/PF 4 MG/2 ML SDV ONE (21:14)
[2018-06-23] MEDS ORDERED: MIDAZOLAM 2 MG/2 ML INJ ONE ×2 (21:15→21:34)
[2018-06-23] MEDS ORDERED: CHLOROPROCAINE HCL INJ/PF 3% (30 MG/1 ML) 20 ML VIAL ONE (21:26)
[2018-06-23] MEDS ORDERED: FENTANYL CITRATE INJ/PF 100 MCG/2 ML AMPUL ONE ×3 (21:34→23:55)
[2018-06-23] MEDS ORDERED: ACETAMINOPHEN 1,000 MG/100 ML RTUPB IV ONE (21:45)
[2018-06-23] MEDS ORDERED: CEFAZOLIN INJ 1 GM VIAL IV PRN (21:49)
[2018-06-23] MEDS ORDERED: CITRIC ACID/SODIUM CITRATE ORAL SOLN 15 ML UDCUP PO ONE (22:00)
[2018-06-23] MEDS ORDERED: CEFAZOLIN SODIUM 2 GM in DEXTROSE 5%-WATER 100 ML IV ONE (22:00)
--- NOTE | 2018-06-23 22:15 | Operative Report ---
Operative Report DATE OF SURGERY: 06/23/18 PREOPERATIVE DIAGNOSIS: 1. INTRAUTERINE AT 39 WEEKS. 2. PREMATURE RUPTURE OF MEMBRANES. 3. ARREST OF DESCENT. 4. SUSPECTED CEPHALOPELVIC DISPROPORTION POSTOPERATIVE DIAGNOSIS: 1. INTRAUTERINE AT 39 WEEKS. 2. PREMATURE RUPTURE OF MEMBRANES. 3. ARREST OF DESCENT. 4. SUSPECTED CEPHALOPELVIC DISPROPORTION OPERATION: PRIMARY LOW TRANSVERSE SECTION VIA PFANNENSTIEL SKIN INCISION SURGEON: ABILIO MEEHAN ANESTHESIA: Epidural TISSUE REMOVED OR ALTERED: pH, cord blood, placenta. COMPLICATIONS: NONE ESTIMATED BLOOD LOSS: 700 ML INTRAOPERATIVE FINDINGS: Viable male , Apgars and weight pending per Nursery at this time. Normal appearing uterus, bilateral fallopian tubes and ovaries. PROCEDURE: Patient was taken to the operating room. She had epidural anesthesia and was dosed per anesthesia. She received 2 grams of Ancef. She had sequential compression devices and mcmillan catheter in place. Her abdomen was prepped with Chloraprep. She was steriley drapped and time out procedure performed. At this time a low transverse skin incision was made in Pfannenstiel fashion using scalpel and carried down to the underlying fascia. This was then nicked in the midline and extended laterally bilaterally with [place] scissors. The superior portion of the fascial incision was grasped with Nevaeh clamps and the under lying rectus muscles were dissected off bluntly and sharply. This was done in similar fashion to the lower fascial incision. At this time the peritoneum was entered digitally bluntly. A bladder blade was then inserted and a bladder flap developed using Metzenbaum scissors. The bladder blade inserted above this flap. Using scalpel a low transverse uterine incision was made and clear amniotic fluid was noted. The infant was then delivered in OA presentation without nuchal cord. The umbilical cord was doubly clamped and cut and infant handed to awaiting resuscitation staff. Samples of pH and cord blood obtained from umbilical cord. The placenta was then manually extracted and uterus cleared of all clot and debris. She was noted to have a slight cervical extention from the left uterine incision.Starting at the left uterine angle the incision was closed using 0- Vicryl on a CT-1. A second imbricating layer was also made with 0-Vicryl on a CT -1. At this point the posterior cul-de-sac was cleared of all clot and debris. The uterus was returned to the abdomen and bilateral gutters cleared. Surgicell was placed above the uterine incision to help control hemostasis. Inspection of the fascia and bladder was noted to be intact and clear urine flowing from mcmillan catheter was also noted. Attention was then turned towards closure of the fascial insicion. This was closed using 0-Vicryl suture in a running fashion. The subcutaneous layer was copiously irrigated and any signs of bleeding was Bovie cauterized. This was further re-approximated using 3-0 Vicryl in a running fashion. Skin was then closed using 4-0 Monocryl in a subcuticular fashion. Dermabond and clean bandage dressing was then applied. At this point the procedure was deemed complete. She tolerated the procedure well. All sponge counts lap counts, instruments, and needles were correct x 2.
[2018-06-23] MEDS ORDERED: KETOROLAC TROMETHAMINE INJ/PF 30 MG/1 ML SDV ONE (22:16)
[2018-06-23] MEDS: KETOROLAC TROMETHAMINE INJ/PF 30 MG/1 ML SDV IV SCH (22:20)
--- NOTE | 2018-06-23 23:54 | Delivery Summary ---
Del Sum A-C Datetime Report Generated by CPN: 06/23/2018 23:54 DELIVERY PERSONNEL DELIVERY PERSONNEL: [id number] Delivery Doctor:: Dr. Montanez Anesthesiologist:: Celso England MD DEMOGRAPHIC ANALYST:: Neville Nuñez CRNA Labor and Delivery Nurse:: Mally Devi RNpersonal financial planner Nurse:: Machelle Caballero RN Director Audience Marketing:: Sima Devi RN Neonatal Nurse Practitioner:: ROSALINDA Richard Nursery Nurse:: Rosario May RN Square Cutter/CORRUGATED SHEET MATERIAL SHEETER: [facility] Square Cutter/CORRUGATED SHEET MATERIAL SHEETER: [facility] Additional Personnel: : Eugenio Maloney CNA MATERNAL INFORMATION Delivery Anesthesia: Epidural Medications After Delivery: Pitocin Drip 20 Units/1000ml NSS Maternal Complications: None LABOR SUMMARY EDC: 06/27/2018 00:00 No. Babies in Womb: 1 Attempted: No Labor Anesthesia: Epidural LABOR INFORMATION Reason for Induction: Not Applicable Onset of Labor: 06/23/2018 11:23 Complete Dilatation: 06/23/2018 19:28 Oxytocin: Augmentation Group B Beta Strep: Negative Antibiotics # of Doses: 0 Antibiotics Time of Last Dose: N/A Name of Antibiotic Given: N/A Steroids Given: None Reason Steroids Not Administered: Not Applicable MEMBRANES Membranes Rupture Method: Spontaneous Rupture of Membranes: 06/23/2018 08:00 Length of Rupture (hr): 13.53 Amniotic Fluid Color: Clear Amniotic Fluid Amount: Small Amniotic Fluid Odor: None STAGES OF LABOR Stage 1 hr: 8 Stage 1 min: 5 Stage 2 hr: 2 Stage 2 min: 4 Stage 3 hr: 0 Stage 3 min: 0 Total Time in Labor hr: 10 Total Time in Labor min: 9 VAGINAL DELIVERY Episiotomy: None Laceration #1: None Laceration Extension #1: N/A Laceration #2: None Laceration Extension #2: N/A Laceration #3: None Laceration Extension #3: N/A Laceration Repair: Not Applicable Sponge Count Correct: N/A Sharps Count Correct: N/A CSECTION DELIVERY Primary Indication: Arrest of Descent Secondary Indication: Other Other Secondary Indication: suspected cephalopelvic disproportion CSection Urgency: Non-Scheduled CSection Incidence: Primary Labor: Labor Elective: N/A CSection Incision: Lower Uterine Transverse Uterine Closure: Double-layer closure BABY A INFORMATION Infant Delivery Date/Time: 06/23/2018 21:32 Method of Delivery: Born in Route : No : N/A Forceps: N/A Vacuum Extraction: N/A Shoulder Dystocia : No PRESENTATION/POSITION BABY A Presentation: Cephalic Cephalic Presentation: Vertex Vertex Position: Left Occipital Posterior Breech Presentation: N/A PLACENTA INFORMATION BABY A Placenta Delivery Time : 06/23/2018 21:32 Placenta Method of Delivery: Manual Removal Placenta Status: Delivered SCORES BABY A Heart Rate 1 min: >100 bpm Resp Effort 1 min: Good Cry Reflex Irritability 1 min: Cough or Sneeze or Pulls Away Muscle Tone 1 min: Active Motion Color 1 min: Blue/Pale Resuscitation Effort 1 min: Tactile Stimulation SCORE 1 MIN: 8 Heart Rate 5 min: >100 bpm Resp Effort 5 min: Good Cry Reflex Irritability 5 min: Cough or Sneeze or Pulls Away Muscle Tone 5 min: Active Motion Color 5 min: [place], Extremities Blue Resuscitation Effort 5 min: N/A SCORE 5 MIN: 9 INFANT INFORMATION BABY A Gestational Age at Delivery: 39.3 Gestational Status: Full Term- 39- 40.6 Weeks Outcome : Liveborn Infant Condition : Stable Infant Sex: Male IDENTIFICATION BABY A Infant Verification Date/Time: 06/23/2018 21:36 ID Band Number: [id number] Mother's Name Verified: Yes RN Verifying : K. Marito, RN Additional Verifying Personnel: R. Amara, CORRUGATED SHEET MATERIAL SHEETER WEIGHT/LENGTH BABY A Infant Birthweight (gm): 3540 Infant Weight (lb): 7 Infant Weight (oz): 13 Infant Length (in): 21.50 Infant Length (cm): 54.61 CORD INFORMATION BABY A No. Cord Vessels: 3 Nuchal Cord : N/A Cord Blood Taken: Yes-For Storage (Mom's Blood type +) Infant Suction: Mouth; Nose ASSESSMENT BABY A Complications: None Physical Findings at Delivery: Molding of the Head Physical Findings- Other: initial assessment to be performed by nursery nurse who is in OR Respirations: Appears Normal Principal Product Manager/ALS Called : No Care By: Cristhian May RN Transferred To: [facility] SIGNATURES Signature: with User ID: [email or web address], Addendum/Amendment: awaiting further input for portions from nursing
[2018-06-23] MEDS ORDERED: MORPHINE SULFATE 10 MG/ML INJ ONE ×2 (23:56→23:57)
[2018-06-24] MEDS: CEFAZOLIN 1 GM/D5W RTU 1 GM/50 ML RTUPB IV SCH ×4 (01:45→18:26)
[2018-06-24] MEDS: OXYCODONE-ACETAMINOPHEN 5-325 MG TABLET PO PRN ×2 (03:44→13:28)
[2018-06-24 06:26] LABS: HEMATOCRIT 27.3 % (36.0-47.0); HEMOGLOBIN 9.3 g/dL (12.0-15.5); MEAN CORPUSCULAR HEMOGLOBIN 28.5 pg (27.0-33.4); MEAN CORPUSCULAR VOLUME 84 fl (80-97); PLATELET COUNT 338 10^3/uL (150-450); RED BLOOD COUNT 3.25 10^6/uL (3.72-5.28); RED CELL DISTRIBUTION WIDTH 14.1 % (11.5-14.0); WHITE BLOOD COUNT 23.4 10^3/uL (4.0-10.5)
[2018-06-24] MEDS: KETOROLAC TROMETHAMINE INJ/PF 30 MG/1 ML SDV IV SCH ×2 (06:57→13:27)
[2018-06-24] MEDS: IBUPROFEN 800 MG TABLET PO SCH ×4 (08:27→18:25)
[2018-06-24] MEDS ORDERED: (PENDING PHARMACY ID) (Prenatal Vits96/Iron Fum/Folic [Prenatal Tablet] 1 EACH) PO SCH (10:00)
--- NOTE | 2018-06-24 10:12 | PDOC PROGRESS REPORT ---
Subjective-OB Progress Note for:: 06/24/18 Subjective: reports tolerating diet, mcmillan still in place. pain and bleeding controlled, + passing gas. encouraged to get out of bed today. Physical Exam (OB) Vital Signs: Temp Pulse Resp BP Pulse Ox 99.2 F 92 16 110/66 95 06/24/18 04:56 06/24/18 04:56 06/24/18 03:45 06/24/18 04:56 06/24/18 04:56 Intake & Output 06/23/18 06/24/18 06/25/18 06:59 06:59 06:59 Intake Total 340 Output Total 400 Balance -60 Weight 69.3 kg - Dressing Removed: No - OPSITE in place Incision: Dressing, Well Approximated - Abdomen Description: Tender, Soft, Round Hernia Present: No Fundal Description: Firm, Midline Fundal Height: u/u - u/2 - Extremities Lower extremities: Brit's sign - neg Calf: Normal, Nontender Objective-Diagnostic Laboratory: 06/24/18 06:09 06/23/18 06/23/18 06/23/18 10:00 11:45 11:45 WBC 18.6 H RBC 3.90 Hgb 10.9 L Hct 32.5 L MCV 83 MCH 28.0 MCHC 33.5 RDW 13.8 Plt Count 406 Seg Neutrophils % 80.0 H Lymphocytes % 12.4 L Monocytes % 6.9 Eosinophils % 0.3 Basophils % 0.4 Absolute Neutrophils 14.9 H Absolute Lymphocytes 2.3 Absolute Monocytes 1.3 Absolute Eosinophils 0.1 Absolute Basophils 0.1 Carbonic Acid HCO3/H2CO3 Ratio ABG pH ABG pCO2 ABG pO2 ABG HCO3 ABG O2 Saturation ABG Base Excess FiO2 Urine Color YELLOW Urine Appearance TURBID Urine pH 6.0 Ur Specific [place] 1.016 Urine Protein 30 H Urine Glucose (UA) NEGATIVE Urine Ketones NEGATIVE Urine Blood MODERATE H Urine Nitrite NEGATIVE Ur Leukocyte Esterase LARGE H Blood Type B POSITIVE Antibody Screen NEGATIVE 06/23/18 06/24/18 21:34 06:09 WBC 23.4 H RBC 3.25 L Hgb 9.3 L Hct 27.3 L MCV 84 MCH 28.5 MCHC 34.0 RDW 14.1 H Plt Count 338 Seg Neutrophils % Lymphocytes % Monocytes % Eosinophils % Basophils % Absolute Neutrophils Absolute Lymphocytes Absolute Monocytes Absolute Eosinophils Absolute Basophils Carbonic Acid Cancelled HCO3/H2CO3 Ratio Cancelled ABG pH Cancelled ABG pCO2 Cancelled ABG pO2 Cancelled ABG HCO3 Cancelled ABG O2 Saturation Cancelled ABG Base Excess Cancelled FiO2 Cancelled Urine Color Urine Appearance Urine pH Ur Specific [place] Urine Protein Urine Glucose (UA) Urine Ketones Urine Blood Urine Nitrite Ur Leukocyte Esterase Blood Type Antibody Screen Assessment and Plan(PN) - Assessment and Plan (1) delivery delivered Is this a current diagnosis for this admission?: Yes - Time Spent with Patient Time with patient: Less than 15 minutes Medications reviewed and adjusted accordingly: Yes - Disposition Anticipated Discharge: Home Within: within 48 hours
[2018-06-24] MEDS: DOCUSATE SODIUM 100 MG CAPSULE PO SCH ×2 (10:16→18:25)
[2018-06-24] MEDS: PRENATAL VITAMIN W DHA CAPSULE PO SCH (10:17)
[2018-06-25] MEDS: IBUPROFEN 800 MG TABLET PO SCH ×5 (00:10→23:22)
[2018-06-25] MEDS: CEFAZOLIN 1 GM/D5W RTU 1 GM/50 ML RTUPB IV SCH ×2 (00:10→06:26)
--- NOTE | 2018-06-25 08:34 | PDOC PROGRESS REPORT ---
Subjective-OB Progress Note for:: 06/25/18 Subjective: Still in alot of pain, does not feel like she can go home today, passing gas, eating well, discussed pain medication and the need to take it for pain relief Physical Exam (OB) Vital Signs: Temp Pulse Resp BP Pulse Ox 98.8 F 84 18 114/71 97 06/25/18 07:30 06/25/18 07:30 06/25/18 07:30 06/25/18 07:30 06/25/18 07:30 Intake & Output 06/24/18 06/25/18 06/26/18 06:59 06:59 06:59 Intake Total 340 1400 Output Total 400 850 Balance -60 550 Weight 69.3 kg - PIH/Pre-Eclampsia Clonus: Negative Headache: Absent Epigastric Pain: No Visual Changes: No - Dressing Removed: No - optsite clean dry and intact Incision: Dressing - Lochia Lochia Amount: Small 10-25 ml Lochia Color: Rubra/Red - Abdomen Description: Tender, Soft, Round Hernia Present: No Fundal Description: Firm, Midline Fundal Height: u/u - u/2 Objective-Diagnostic Laboratory: 06/24/18 06:09 Assessment and Plan(PN) - Assessment and Plan (1) delivery delivered Is this a current diagnosis for this admission?: Yes - Time Spent with Patient Time with patient: Less than 15 minutes Medications reviewed and adjusted accordingly: Yes - Disposition Anticipated Discharge: Home Within: within 24 hours - take pain medication, ambulate
[2018-06-25] MEDS: OXYCODONE-ACETAMINOPHEN 5-325 MG TABLET PO PRN ×3 (08:52→23:22)
[2018-06-25] MEDS: PRENATAL VITAMIN W DHA CAPSULE PO SCH (09:19)
[2018-06-25] MEDS: DOCUSATE SODIUM 100 MG CAPSULE PO SCH ×2 (09:19→17:16)
[2018-06-25 10:09] LABS: HEMATOCRIT 25.6 % (36.0-47.0); HEMOGLOBIN 8.5 g/dL (12.0-15.5); MEAN CORPUSCULAR HEMOGLOBIN 28.2 pg (27.0-33.4); MEAN CORPUSCULAR HGB CONC 33.2 g/dL (32.0-36.0); MEAN CORPUSCULAR VOLUME 85 fl (80-97); PLATELET COUNT 383 10^3/uL (150-450); RED BLOOD COUNT 3.02 10^6/uL (3.72-5.28); RED CELL DISTRIBUTION WIDTH 14.3 % (11.5-14.0); WHITE BLOOD COUNT 20.8 10^3/uL (4.0-10.5)
[2018-06-26] MEDS: IBUPROFEN 800 MG TABLET PO SCH (06:00)
[2018-06-26] MEDS: OXYCODONE-ACETAMINOPHEN 5-325 MG TABLET PO PRN (08:21)
[2018-06-26 09:03] VITALS: BP 115/79
--- NOTE | 2018-06-26 09:35 | PDOC DISCHARGE SUMMARY ---
Final Diagnosis Discharge Date: 06/26/18 - POD #3, Rpt , B+, Rubella Immune, pt doing well this morning, no complaints - Final Diagnosis (1) Normal course Is this a current diagnosis for this admission?: Yes (2) delivery delivered Is this a current diagnosis for this admission?: Yes Discharge Data - Discharge Medication Prescriptions: Ibuprofen [Motrin 800 mg Tablet] 800 mg PO Q6 #60 tablet Oxycodone HCl/Acetaminophen [Percocet 5-325 mg Tablet] 2 tab PO Q6HP PRN 5 Days #30 tablet PRN Reason: Pain Scale Of 3 Home Medications: Vits96/Iron Fum/Folic [ Tablet] 1 each PO DAILY 06/08/18 Ibuprofen [Motrin 800 mg Tablet] 800 mg PO Q6 #60 tablet 06/26/18 Oxycodone HCl/Acetaminophen [Percocet 5-325 mg Tablet] 2 tab PO Q6HP PRN 5 Days #30 tablet 06/26/18 Reason(s) for Admission: Ceasarean Section-Repeat Procedures: Ultrasound Intrapartum Procedure(s): : Low Cervical, Transverse - Diagnosis Test Laboratory: Temp Pulse Resp BP Pulse Ox 98.4 F 92 20 115/79 96 06/26/18 08:00 06/26/18 08:00 06/26/18 08:00 06/26/18 08:00 06/26/18 08:00 06/23/18 06/23/18 06/24/18 10:00 11:45 06:09 RBC 3.90 3.25 L Hgb 10.9 L 9.3 L Hct 32.5 L 27.3 L Urine Opiates Screen NEGATIVE 06/25/18 09:45 RBC 3.02 L Hgb 8.5 L Hct 25.6 L Urine Opiates Screen - Discharge information/Instructions Discharge Activity: Activity As Tolerated, No Lifting Over 10 Pounds, Pelvic Rest Discharge Diet: As Tolerated, Regular Disposition: HOME, SELF-CARE Follow up with: [facility] in: 1, Weeks - for incision check
[2018-06-26] MEDS: PRENATAL VITAMIN W DHA CAPSULE PO SCH (10:36)
[2018-06-26] MEDS: DOCUSATE SODIUM 100 MG CAPSULE PO SCH (10:36)
== END 2018-06-26 11:00 | disposition home or self-care (01) | DRG 788 ==
LOC: LC 09:52 → LR 10:55 → 2S 06-24 00:30
PROVIDERS: ADMIT Obstetrics & Gynecology; ATTEND Obstetrics & Gynecology
PROC: 10D00Z1 Extraction of Products of Conception, Low, Open Approach (ICD-10-PCS; principal; 2018-06-23)
PROC: 4A1HXCZ Monitoring of Products of Conception, Cardiac Rate, External Approach (ICD-10-PCS; 2018-06-23)
PROC: 3E02340 Introduction of Influenza Vaccine into Muscle, Percutaneous Approach (ICD-10-PCS; 2018-06-26)
DX: O65.9 Obstructed labor due to maternal pelvic abnormality, unspecified (principal); O62.1 Secondary uterine inertia; O42.02 Full-term premature rupture of membranes, onset of labor within 24 hours of rupture; Z87.891 Personal history of nicotine dependence; Z3A.37 37 weeks gestation of pregnancy; Z37.0 Single live birth; Z23 Encounter for immunization
CPT/HCPCS: 1961; 36415; 80307; 81005; 84112; 85025; 85027; 86592; 86850; 86900; 86901; 88307; 90471; 90686; 94799; G0008; J0131; J0690; J1885; J2250; J2270; J2400; J2405; J2590; J3010; J3490